=== PATIENT | female | born 1960 | race Caucasian/White ===

== ENCOUNTER → 2019-02-11 15:19 | Outpatient (CLI) | payer OTHER, SELFPAY ==
--- NOTE | 2019-02-11 | DI.MG.S_ITS ---
BILATERAL DIGITAL SCREENING MAMMOGRAM 3D/2D WITH CAD: 02/11/2019 CLINICAL: Routine screening. Family history of breast cancer. Comparison is made to exams dated: 12/12/2016 mammogram, 09/16/2015 mammogram, 07/12/2014 mammogram, and 08/25/2012 mammogram - [facility]. There are scattered fibroglandular elements in both breasts. Current study was also evaluated with a Computer Aided Detection (CAD) system. No significant masses, calcifications, or other findings are seen in either breast. There has been no significant interval change. IMPRESSION: NEGATIVE There is no mammographic evidence of malignancy. A 1 year screening mammogram is recommended. This exam was interpreted at Station ID: [id number]. NOTE: For mammograms, a report in lay terms will be sent to the patient. Approximately 15% of breast malignancies will not be visualized mammographically. In the management of a palpable breast mass, a negative mammogram must not discourage biopsy of a clinically suspicious lesion. Electronically Signed By: Sissy livingston/mirna:02/11/2019 16:37:39 letter sent: Normal Exam ACR BI-RADS Category 1: Negative 3341F
== END ==
PROVIDERS: PCP Family Medicine; Visit Provider Family Medicine
DX: Z12.31 Encounter for screening mammogram for malignant neoplasm of breast (principal); Z80.3 Family history of malignant neoplasm of breast
CPT/HCPCS: 77063; 77067

== ENCOUNTER → 2020-04-04 09:06 | Outpatient (CLI) | payer OTHER, SELFPAY ==
[2020-04-04 10:16] LABS: Add Manual Diff / Slide Review NO; Basophils Absolute Auto 100 /uL (0-100); Basophils Percent Auto 1.2 % (0-2); Eosinophils Absolute Auto 200 /uL (0-450); Eosinophils Percent Auto 3.8 % (2-4); Hemoglobin 12.1 g/dL (12.0-16.0); Lymphocytes Absolute Auto 1400 /uL (1100-4500); Lymphocytes Percent Auto 31.7 % (25-40); Mean Corpuscular HGB Conc 32.7 % (30-36); Mean Corpuscular Volume 88.9 fL (80-100); Monocytes Absolute Auto 300 /uL (0-900); Monocytes Percent Auto 7.4 % (3-14); Neutrophils Absolute Auto 2500 /uL (1500-7000); Neutrophils Percent Auto 55.9 % (50-75); Platelet Count 231 X10^3/uL (150-400); Red Blood Cell Count 4.16 X10^6/uL (4.0-5.2); White Blood Cell Count 4.4 X10^3/uL (4.5-11.0)
[2020-04-04 10:40] LABS: Alanine Aminotransferase 17 IU/L (<35); Albumin 4.1 g/dL (3.5-5.0); Albumin Globulin Ratio 1.4 (1.0-2.8); Alkaline Phosphatase 65 U/L (38-126); Aspartate Aminotransferase 25 IU/L (14-36); BUN Creatinine Ratio 22.1 (6-22); Bilirubin Total 0.4 mg/dL (0.2-1.3); Blood Urea Nitrogen 19 mg/dL (7-17); Calcium 9.5 mg/dL (8.4-10.2); Carbon Dioxide 32 mmol/L (22-32); Chloride 104 mmol/L (98-107); Cholesterol 150 mg/dL (140-199); Estimated Glomerular Filt Rate > 60.0 mL/min (>60); Globulin 2.9 g/dL (1.7-4.1); Glucose 105 mg/dL (70-100); HDL Cholesterol 51 mg/dL (40-60); HEMOLYSIS < 15 (0-50); LDL Cholesterol Calculated 81 mg/dL (<100); Potassium 4.5 mmol/L (3.4-5.1); Sodium 139 mmol/L (137-145); Triglycerides 91 mg/dL (35-150)
[2020-04-04 11:08] LABS: TSH w/ Reflex to FT4 2.56 uIU/mL (0.47-4.68)
== END ==
PROVIDERS: PCP Family Medicine; Referring Provider Family Medicine; Visit Provider Family Medicine
DX: E78.5 Hyperlipidemia, unspecified (principal); F32.9 Major depressive disorder, single episode, unspecified
CPT/HCPCS: 36415; 80053; 80061; 84443; 85025

== ENCOUNTER → 2020-05-02 15:59 | Outpatient (CLI) | payer OTHER, SELFPAY ==
--- NOTE | 2020-05-02 | DI.MG.S_ITS ---
BILATERAL DIGITAL SCREENING MAMMOGRAM 3D/2D WITH CAD: 05/02/2020 CLINICAL: Routine screening. Family history of breast cancer. Comparison is made to exams dated: 02/11/2019 mammogram, 12/12/2016 mammogram, and 09/16/2015 mammogram - [facility]. There are scattered fibroglandular elements in both breasts. Current study was also evaluated with a Computer Aided Detection (CAD) system. There is irregular architectural distortion in the left breast at 1 o'clock middle depth. This is more prominent. No other significant masses, calcifications, or other findings are seen in either breast. IMPRESSION: INCOMPLETE: NEEDS ADDITIONAL IMAGING EVALUATION The irregular architectural distortion in the left breast is indeterminate. Additional views with possible ultrasound are recommended. This exam was interpreted at Station ID: [id number]. NOTE: For mammograms, a report in lay terms will be sent to the patient. Approximately 15% of breast malignancies will not be visualized mammographically. In the management of a palpable breast mass, a negative mammogram must not discourage biopsy of a clinically suspicious lesion. Electronically Signed By: Eder fisher/mirna:05/02/2020 16:33:14 letter sent: Additional Imaging Needed ACR BI-RADS Category 0: Incomplete 3340F
== END ==
PROVIDERS: PCP Family Medicine; Referring Provider Family Medicine; Visit Provider Family Medicine
DX: Z12.31 Encounter for screening mammogram for malignant neoplasm of breast (principal); Z80.3 Family history of malignant neoplasm of breast
CPT/HCPCS: 77063; 77067

== ENCOUNTER → 2020-05-09 13:24 | Outpatient (CLI) | payer OTHER, SELFPAY ==
--- NOTE | 2020-05-09 | DI.MG.S_ITS ---
UNILATERAL LEFT DIGITAL DIAGNOSTIC MAMMOGRAM 3D/2D WITH ADDITIONAL VIEWS: 05/09/2020 CLINICAL: Additional evaluation requested from prior study. Comparison is made to exams dated: 05/02/2020 mammogram, 02/11/2019 mammogram, and 12/12/2016 mammogram - [facility]. There are scattered fibroglandular elements in left breast. The previously described irregular architectural distortion in the left breast at 1 o'clock middle depth is no longer seen and is not confirmed in additional views and is consistent with summation artifact. No other significant masses or calcifications are seen in the breast. IMPRESSION: INCOMPLETE: NEEDS ADDITIONAL IMAGING EVALUATION The previously described architectural distortion disperses with additional views and is consistent with summation artifact. However, an ultrasound to confirm is recommended, and is scheduled to immediately follow this examination. This exam was interpreted at Station ID: [id number]. NOTE: For mammograms, a report in lay terms will be sent to the patient. Approximately 15% of breast malignancies will not be visualized mammographically. In the management of a palpable breast mass, a negative mammogram must not discourage biopsy of a clinically suspicious lesion. Electronically Signed By: Earl Owens M.D. aty/:05/09/2020 14:14:20 ACR BI-RADS Category 0: Incomplete 3340F
--- NOTE | 2020-05-09 13:25 | DI.US.S_ITS ---
LIMITED ULTRASOUND OF LEFT BREAST AND AXILLA: 05/09/2020 CLINICAL: Patient returns today to evaluate an asymmetry in left breast. Comparison is made to exams dated: 05/09/2020 mammogram, 05/02/2020 mammogram, and 02/11/2019 mammogram - [facility]. Real-time ultrasound of the left breast 12-3 o'clock, and axilla regions was performed. Blackwell scale images of the real-time examination were reviewed. No significant abnormalities were seen sonographically in the left breast. IMPRESSION: NEGATIVE There is no sonographic evidence of malignancy. There is no abnormality seen in the left breast to correspond with the now resolved mammography finding. A 1 year screening mammogram is recommended. Findings and recommendations were conveyed to the patient during today's evaluation. This exam was interpreted at Station ID: [id number]. Electronically Signed By: Earl Owens M.D. aty/:05/09/2020 15:07:35 letter sent: Normal Exam Ultrasound BI-RADS: 1 Negative
== END ==
PROVIDERS: PCP Family Medicine; Referring Provider Family Medicine; Visit Provider Family Medicine
DX: R92.8 Other abnormal and inconclusive findings on diagnostic imaging of breast (principal)
CPT/HCPCS: 76642; 77065; G0279

== ENCOUNTER → 2020-05-27 09:14 | Outpatient (CLI) | payer OTHER, SELFPAY ==
[2020-05-27 11:13] LABS: COVID19 -Nasal RAPID Negative (Negative)
== END ==
PROVIDERS: PCP Family Medicine; Visit Provider Surgery
DX: Z01.812 Encounter for preprocedural laboratory examination (principal); Z20.822 Contact with and (suspected) exposure to COVID-19
CPT/HCPCS: 87635; C9803

== ENCOUNTER 2020-05-30 07:24 | Day surgery (SDC) | payer OTHER, SELFPAY ==
[2020-05-30] VITALS (7 sets, daily range): BP systolic 90–107; BP diastolic 52–61; PULSE 77–101; RESP 10–16; TEMP 36.3–36.4; O2SAT 92–99; BMI 24.5
[2020-05-30] MEDS: LACTATED RINGERS 1,000 ML 200 ML IV (07:54)
--- NOTE | 2020-05-30 08:31 | PM.HP.1 ---
History of Present Illness History of Present Illness Date Patient Seen: 05/30/20 Time Patient Seen: 08:31 Chief complaint: SCREENING COLONSCOPY Narrative: The patient presents for colorectal sreening. She had a previous colonoscopy 10 years ago which was normal. No personal or family history of colon cancer. On further history denies any recent gastrointestinal symptoms. No nausea, vomiting, abdominal pain, loss of appetite, unexplained weight loss, change in bowel habits, diarrhea, constipation, melena, hematochezia, or bright red blood per rectum. Patient History Medical History Anxiety Depression Hyperlipidemia Insomnia Surgical History Status post appendectomy Status post hysterectomy with oophorectomy Family & Social History Family History Father CAD (coronary artery disease) Grandfather No problems noted. Grandfather No problems noted. Social History: household members spouse Tobacco & Substance use: Smoking Status Never smoker alcohol intake never Substance Use Type does not use Meds Home Medications and Allergies Home Medications Medication Instructions Recorded Confirmed Type atorvastatin 20 mg tablet 20 mg PO DAILY #90 tab 06/02/19 05/30/20 Rx amitriptyline 50 mg tablet 200 mg PO DAILY #360 tab 11/23/19 05/30/20 Rx fluoxetine 20 mg capsule 20 mg PO DAILY #90 cap 03/29/20 05/30/20 Rx temazepam 15 mg capsule 15 mg PO BEDTIME #30 cap 03/29/20 05/30/20 Rx temazepam 30 mg capsule See Rx Instructions .ROUTE 04/04/20 05/30/20 Rx .COMPLEX #60 cap cyclobenzaprine 10 mg tablet 10 mg PO TIDP PRN #270 tab 05/26/20 05/30/20 Rx Allergies Allergy/AdvReac Type Severity Reaction Status Date / Time codeine [CODEINE] Allergy Mild GI UPSET Verified 03/29/20 10:53 hydrocodone [HYDROCODONE] Allergy Mild ABDOMINAL Verified 03/29/20 10:53 PAIN meperidine [MEPERIDINE] Allergy Mild NAUSEA, Verified 03/29/20 10:53 VOMITING, ABD PAIN morphine [MORPHINE] Allergy Mild RASH Verified 03/29/20 10:53 propoxyphene [PROPOXYPHENE] Allergy Mild HYPOTENSION Verified 03/29/20 10:53 NSAIDS (Non-Steroidal Allergy Unknown GI PAIN Verified 03/29/20 10:53 Anti-Inflamma [NSAIDS (NON-STEROIDAL ANTI-INFLAMMA] Review of Systems Review of Systems Narrative: A 10 point review of systems is negative except as noted in the HPI Exam Vital Signs (past 8 hours): - 05/30/20 07:44 Temperature 97.4 F L Pulse Rate 77 Respiratory Rate 16 Blood Pressure 107/59 L Pulse Oximetry 99 Oxygen Delivery Method Room Air Narrative Exam Narrative: General-no acute distress, well nourished adult female HEENT-moist mucous membranes, no scleral icterus Neck-supple, no lymphadenopathy Chest- non labored respirations, clear to auscultation bilaterally Cardiac-regular rate no peripheral edema Abdomen-soft, nontender, non distended Extremities-warm, well perfused Neurological-alert and oriented, no focal deficits Assessment & Plan Assessment and plan (1) Screening for colon cancer: Status: Acute Assessment & Plan narrative: The patient requires colorectal screening and colonoscopy is recommended. Technical details were discussed. Risks, benefits, alternatives explained. Risks including but not limited to myocardial infarction, aspiration, bleeding, pain, missed lesion, incomplete examination, need for further radiographic studies, colonic perforation, and need for major abdominal surgery were discussed. All questions were answered to their satisfaction, and they are in agreement with this plan.
[2020-05-30] MEDS: ONDANSETRON 4 MG/2 ML INJ IV (08:36)
[2020-05-30] MEDS: MIDAZOLAM 5 MG/5 ML VIAL IV (08:37)
[2020-05-30] MEDS: fentaNYL 250 MCG/5 ML INJ IV (08:37)
--- NOTE | 2020-05-30 08:59 | PM.OP.ENDO ---
Operative Date/Time/Diagnoses Date of procedure: 05/30/20 Time of procedure: 08:59 Pre-op diagnosis: screening colonoscopy Post-op diagnosis: other (tortous colon) Procedure & Clinicians Study performed: incomplete colonoscopy Same procedure as scheduled: Yes Indications: 59-year-old woman prior colonoscopy 10 years ago presents for routine screening Surgeon: Cayden Reyes Procedure Notes Procedure in detail: Medications: Conscious sedation using 4mg IV midazolam and 100mcg IV of fentanyl The history and physical was performed/updated and the patient is ASA class is . The procedure was discussed in detail with the patient. Potential risks complications including infection, bleeding, missed diagnosis, perforation, need for surgery, and were explained. Their questions were answered and informed consent was obtained. Patient was brought to the procedure room and placed standard monitoring equipment. The patient's vital signs were monitored continuously throughout the entire procedure. Prior to starting time-out was performed. The patient was placed in the left lateral recumbent position. Procedural sedation was administered. Examination began with a thorough inspection of the perianal area there was no evidence of fissures, fistulae, external hemorrhoids or cutaneous malignancy. The colonoscopy scope was then placed into the anal canal and was advanced forward. The rectum was traversed however at the level of the sigmoid colon at approximately 25 cm from anal verge the colon was extremely tortuous and I was unable to advance beyond this point. Multiple attempts were made to improve the situation including stiffening of the scope, copious irrigation, repositioning the patient, but despite these measures I was unable to adequately visualize the lumen and safely advance forward. After 20 minutes of sedation the procedure was aborted. Sedation minutes: 20 Specimen(s): none sent Complications: none Impression: Incomplete colonoscopy Post-procedure Recommendations: Other recommendation (Barium enema) Disposition: same day surgery
== END 2020-05-30 09:40 | disposition home or self-care (01) ==
PROVIDERS: PCP Family Medicine; Referring Provider Family Medicine; Visit Provider Surgery
PROC: 0DJD8ZZ Inspection of Lower Intestinal Tract, Via Natural or Artificial Opening Endoscopic (ICD-10-PCS; CPT 45378; principal; 2020-05-30 08:30)
DX: Z12.11 Encounter for screening for malignant neoplasm of colon (principal); F41.9 Anxiety disorder, unspecified; F32.9 Major depressive disorder, single episode, unspecified; E78.5 Hyperlipidemia, unspecified; K56.2 Volvulus; Z53.09 Procedure and treatment not carried out because of other contraindication
CPT/HCPCS: 45378; 99152; J2250; J2405; J3010

== ENCOUNTER → 2020-06-20 07:36 | Outpatient (CLI) | payer OTHER, SELFPAY ==
--- NOTE | 2020-06-20 07:37 | DI.RAD.S_ITS ---
PROCEDURE: FL BARIUM ENEMA W AIR CONTRAST INDICATIONS: incomplete colonoscopy COMPARISON: None. FINDINGS: KUB: Pre-procedural animal geneticist film demonstrates a normal bowel gas pattern. No suspicious abdominal calcifications. Visualized solid organ contours are normal in size. No suspicious bony lesions. Colon: There is adequate air-contrast opacification from the rectum to the cecum. No strictures, ulcers, polyps, or masses are seen. Haustral folds are normal in thickness throughout. No diverticula. The study was mildly compromised by the patient's inability to tolerate full aliquots of instilled gas, and also barium leakage, and also expulsion of the barium enema balloon tip. IMPRESSION: Mildly limited quality of valuation as noted above, no lesion seen. The colon was evaluated to the cecal tip. No lesion seen. Dictated by: Mamadou Higgins M.D. on 06/20/2020 at 9:42 Approved by: Mamadou Higgins M.D. on 06/20/2020 at 9:45
== END ==
PROVIDERS: PCP Family Medicine; Referring Provider Family Medicine; Visit Provider Surgery
DX: Z12.11 Encounter for screening for malignant neoplasm of colon (principal)
CPT/HCPCS: 74280

== ENCOUNTER → 2021-06-30 12:44 | Outpatient (CLI) | payer OTHER, SELFPAY ==
--- NOTE | 2021-06-30 | DI.MG.S_ITS ---
BILATERAL DIGITAL SCREENING MAMMOGRAM 3D/2D WITH CAD: 06/30/2021 CLINICAL: Routine screening. Family history of breast cancer. Comparison is made to exams dated: 05/09/2020 mammogram, 05/02/2020 mammogram, 02/11/2019 mammogram, and 12/12/2016 mammogram - [facility]. The tissue of both breasts is predominantly fatty. Current study was also evaluated with a Computer Aided Detection (CAD) system. No significant masses, calcifications, or other findings are seen in either breast. There has been no significant interval change. IMPRESSION: NEGATIVE There is no mammographic evidence of malignancy. A 1 year screening mammogram is recommended. This exam was interpreted at Station ID: [id number]. NOTE: For mammograms, a report in lay terms will be sent to the patient. Approximately 15% of breast malignancies will not be visualized mammographically. In the management of a palpable breast mass, a negative mammogram must not discourage biopsy of a clinically suspicious lesion. Electronically Signed By: Sissy livingston/mirna:06/30/2021 15:39:19 letter sent: Normal Exam ACR BI-RADS Category 1: Negative 3341F
== END ==
PROVIDERS: PCP Family Medicine; Referring Provider Family Medicine; Visit Provider Family Medicine
DX: Z12.31 Encounter for screening mammogram for malignant neoplasm of breast (principal); Z80.3 Family history of malignant neoplasm of breast
CPT/HCPCS: 77063; 77067

== ENCOUNTER → 2022-02-07 08:27 | Outpatient (CLI) | payer OTHER, SELFPAY ==
[2022-02-07 10:57] LABS: Add Manual Diff / Slide Review NO; Basophils Absolute Auto 100 /uL (0-100); Eosinophils Absolute Auto 100 /uL (0-450); Eosinophils Percent Auto 2.3 % (2-4); Hemoglobin 11.9 g/dL (12.0-16.0); Lymphocytes Absolute Auto 1400 /uL (1100-4500); Lymphocytes Percent Auto 27.2 % (25-40); Mean Corpuscular HGB Conc 33.2 % (30-36); Mean Corpuscular Hemoglobin 29.6 PG (26-34); Mean Corpuscular Volume 89.2 fL (80-100); Monocytes Absolute Auto 500 /uL (0-900); Monocytes Percent Auto 9.3 % (3-14); Neutrophils Absolute Auto 3100 /uL (1500-7000); Neutrophils Percent Auto 60.2 % (50-75); Platelet Count 270 X10^3/uL (150-400); Red Blood Cell Count 4.04 X10^6/uL (4.0-5.2); Red Cell Distribution Width 13.3 % (11.6-14.8); White Blood Cell Count 5.1 X10^3/uL (4.5-11.0)
[2022-02-07 11:09] LABS: Hemoglobin A1C% w Est Avg Glu 5.7 % (4.0-6.0)
[2022-02-07 11:19] LABS: Alanine Aminotransferase 20 IU/L (<35); Albumin 4.2 g/dL (3.5-5.0); Albumin Globulin Ratio 1.2 (1.0-2.8); Alkaline Phosphatase 67 U/L (38-126); Aspartate Aminotransferase 26 IU/L (14-36); Bilirubin Total 0.4 mg/dL (0.2-1.3); Blood Urea Nitrogen 31 mg/dL (7-17); Calcium 9.1 mg/dL (8.4-10.2); Carbon Dioxide 29 mmol/L (22-32); Chloride 104 mmol/L (98-107); Estimated Glomerular Filt Rate > 60 mL/min (>60); Globulin 3.4 g/dL (1.7-4.1); Glucose 87 mg/dL (70-100); HEMOLYSIS < 15 (0-50); Potassium 4.6 mmol/L (3.4-5.1); Sodium 140 mmol/L (137-145); Total Protein 7.6 g/dL (6.3-8.2)
[2022-02-07 11:54] LABS: TSH w/ Reflex to FT4 2.53 uIU/mL (0.47-4.68)
== END ==
PROVIDERS: PCP Family Medicine; Referring Provider Family Medicine; Visit Provider Family Medicine
DX: I95.9 Hypotension, unspecified (principal)
CPT/HCPCS: 36415; 80053; 83036; 84443; 85025

== ENCOUNTER → 2022-07-02 15:53 | Outpatient (CLI) | payer OTHER, SELFPAY ==
--- NOTE | 2022-07-02 15:56 | DI.MG.S_ITS ---
BILATERAL DIGITAL SCREENING MAMMOGRAM 3D/2D WITH CAD: 07/02/2022 CLINICAL: Routine screening. Family history of breast cancer. Comparison is made to exams dated: 06/30/2021 mammogram, 05/02/2020 mammogram, and 02/11/2019 mammogram - . There are scattered areas of fibroglandular density in both breasts (category b / 25%-50% glandular tissue). Current study was also evaluated with a Computer Aided Detection (CAD) system. No significant masses, calcifications, or other findings are seen in either breast. There has been no significant interval change. IMPRESSION: NEGATIVE There is no mammographic evidence of malignancy. A 1 year screening mammogram is recommended. Based on the Tyrer Cuzick model (a risk assessment model) the patient's lifetime risk is 7.1% and her 10 year risk is 2.8%. According to the ACR, ACS, and NCCN guidelines, an annual breast MRI exam along with mammogram is recommended if the patient's lifetime risk is 20% or greater. This exam was interpreted at Station ID: [id number]. NOTE: For mammograms, a report in lay terms will be sent to the patient. Approximately 15% of breast malignancies will not be visualized mammographically. In the management of a palpable breast mass, a negative mammogram must not discourage biopsy of a clinically suspicious lesion. Electronically Signed By: Earl mckeon/mirna:07/03/2022 07:33:42 letter sent: Normal Exam ACR BI-RADS Category 1: Negative 3341F
== END ==
PROVIDERS: PCP Family Medicine; Referring Provider Family Medicine; Visit Provider Family Medicine
DX: Z12.31 Encounter for screening mammogram for malignant neoplasm of breast (principal); Z80.3 Family history of malignant neoplasm of breast
CPT/HCPCS: 77063; 77067

== ENCOUNTER → 2023-07-24 13:52 | Outpatient (CLI) | payer OTHER, SELFPAY ==
--- NOTE | 2023-07-24 13:53 | DI.MG.S_ITS ---
BILATERAL DIGITAL SCREENING MAMMOGRAM 3D/2D WITH CAD: 07/24/2023 CLINICAL: Routine screening. Family history of breast cancer. Comparison is made to exams dated: 07/02/2022 mammogram, 06/30/2021 mammogram, 05/09/2020 mammogram, 05/02/2020 mammogram, and 02/11/[address] - [facility]. There are scattered areas of fibroglandular density in both breasts (category b / 25%-50% glandular tissue). Current study was also evaluated with a Computer Aided Detection (CAD) system. No significant masses, calcifications, or other findings are seen in either breast. There has been no significant interval change. IMPRESSION: NEGATIVE There is no mammographic evidence of malignancy. A 1 year screening mammogram is recommended. Based on the Tyrer Cuzick model (a risk assessment model) the patient's lifetime risk is 6.9% and her 10 year risk is 2.8%. According to the ACR, ACS, and NCCN guidelines, an annual breast MRI exam along with mammogram is recommended if the patient's lifetime risk is 20% or greater. This exam was interpreted at Station ID: [id number]. NOTE: For mammograms, a report in lay terms will be sent to the patient. Approximately 15% of breast malignancies will not be visualized mammographically. In the management of a palpable breast mass, a negative mammogram must not discourage biopsy of a clinically suspicious lesion. Electronically Signed By: Earl mckeon/mirna:07/24/2023 16:36:09 letter sent: Normal Exam ACR BI-RADS Category 1: Negative 3341F
== END ==
PROVIDERS: PCP Family Medicine; Referring Provider Family Medicine; Visit Provider Family Medicine
DX: Z12.31 Encounter for screening mammogram for malignant neoplasm of breast (principal); Z80.3 Family history of malignant neoplasm of breast; R92.323 Mammographic fibroglandular density, bilateral breasts
CPT/HCPCS: 77063; 77067

== ENCOUNTER 2023-11-22 12:16 | Day surgery (SDC) | payer OTHER, SELFPAY ==
[2023-11-22 12:35] VITALS: BP 117/73; PULSE 78; RESP 16; TEMP 37.4; O2SAT 96
[2023-11-22] MEDS: LACTATED RINGERS 1,000 ML 42 ML IV (12:41)
--- NOTE | 2023-11-22 13:19 | PM.HP.1 ---
History of Present Illness History of Present Illness Date Patient Seen: 11/22/23 Time Patient Seen: 13:19 Chief complaint: Screening Colonoscopy Narrative: 63-year-old woman here for screening colonoscopy. She had an attempted colonoscopy several years ago which was incomplete secondary to a tortuous colon. She had a post procedure barium enema which was normal but very painful as she describes. No family history of colon cancer. [facility] Medical History Insomnia Depression Anxiety Hyperlipidemia Surgical History Status post appendectomy Status post hysterectomy with oophorectomy Family History Father CAD (coronary artery disease) Grandfather No problems noted. Grandfather No problems noted. Social History marital status: household members: spouse Smoking Status: Never smoker alcohol intake: never substance use type: does not use Meds Home Medications and Allergies Home Medications Medication Instructions Recorded Confirmed Type temazepam 15 mg capsule 30 mg (2 x 15 mg) PO BEDTIME #60 01/18/21 11/22/23 Rx caps albuterol sulfate 90 mcg/actuation 2 puff inhalation Q6H PRN 01/29/22 11/22/23 Rx aerosol inhaler shortness of breath or wheezing #6.7 grams sumatriptan succinate 50 mg tablet See Rx Instructions PO .COMPLEX 01/29/22 11/22/23 Rx #10 tabs atorvastatin 20 mg tablet 20 mg PO DAILY #90 tabs 04/01/23 11/22/23 Rx cyclobenzaprine 10 mg tablet 10 mg PO TIDP PRN muscle spasm 04/01/23 11/22/23 Rx #270 tabs duloxetine 30 mg capsule,delayed 30 mg PO DAILY #90 caps 04/01/23 11/22/23 Rx release amitriptyline 100 mg tablet 200 mg (2 x 100 mg) PO BEDTIME 08/20/23 11/22/23 Rx #180 tabs Allergies Allergy/AdvReac Type Severity Reaction Status Date / Time morphine [MORPHINE] Allergy Mild RASH Verified 04/01/23 10:15 codeine [CODEINE] AdvReac Mild GI UPSET Verified 11/22/23 10:28 hydrocodone [HYDROCODONE] AdvReac Mild ABDOMINAL Verified 11/22/23 10:28 PAIN meperidine [MEPERIDINE] AdvReac Mild NAUSEA, Verified 11/22/23 10:28 VOMITING, ABD PAIN propoxyphene [PROPOXYPHENE] AdvReac Mild HYPOTENSION Verified 11/22/23 10:28 NSAIDS (Non-Steroidal AdvReac Unknown GI PAIN Verified 11/22/23 10:28 Anti-Inflamma [NSAIDS (NON-STEROIDAL ANTI-INFLAMMA] Exam Vital Signs (past 8 hours): - 11/22/23 12:35 Temperature 99.3 F Pulse Rate 78 Respiratory Rate 16 Blood Pressure 117/73 Pulse Oximetry 96 Oxygen Delivery Method Room Air Oxygen Delivery Method Room Air Narrative Exam Narrative: General adult woman alert oriented no acute distress Chest nonlabored respiration Extremities warm well perfused Assessment & Plan Assessment & Plan narrative: The patient requires colorectal screening and colonoscopy is recommended. Technical details were discussed. Risks, benefits, alternatives explained. Risks including but not limited to myocardial infarction, aspiration, bleeding, pain, missed lesion, incomplete examination, need for further radiographic studies, intestinal injury, and need for major abdominal surgery were discussed. All questions were answered to their satisfaction, and they are in agreement with this plan. Time-Based Coding :: [TOTAL MINUTES] spent with patient and on the chart (including review of chart, obtaining history, exam, reviewing outside data, placing orders, documenting exam and treatment plan, and counseling patient) on [DATE].
[2023-11-22 13:40] VITALS: BP 105/79; PULSE 78; RESP 14; TEMP 36.4; O2SAT 93
[2023-11-22 13:45] VITALS: BP 97/67; PULSE 81; RESP 13; O2SAT 94
[2023-11-22 13:50] VITALS: BP 108/66; PULSE 79; RESP 14; O2SAT 96
--- NOTE | 2023-11-22 13:50 | P.OP.COLON_ITS ---
Operative Date/Time/Diagnoses Date of procedure: 11/22/23 Time of procedure: 13:50 Pre-op diagnosis: Screening colonoscopy Procedure & Clinicians Study performed: Sigmoidoscopy Aborted colonoscopy Same procedure as scheduled: Yes Indications: 63-year-old woman here for screening colonoscopy Surgeon: Cayden Reyes Procedure Notes Procedure in detail: The history and physical was performed/updated and the patient is ASA class is 2. The procedure was discussed in detail with the patient. Potential risks complications including infection, bleeding, missed diagnosis, perforation, need for surgery, and were explained. Their questions were answered and inform ed consent was obtained. Patient was brought to the procedure room and placed standard monitoring equipment. The patient's vital signs were monitored continuously throughout the entire procedure. Prior to starting time-out was performed. The patient was placed in the left lateral recumbent position. Procedural sedation was administered by anesthesia. Examination began with a thorough inspection of the perianal area there was no evidence of fissures, fistulae, external hemorrhoids or cutaneous malignancy. The colonoscopy scope was then placed into the anal canal and was advanced forward. We reached the level of the sigmoid colon. Beyond this point I was unable to advance the scope safely secondary to the tortuosity of the colon likely result of adhesive disease given her previous pelvic surgeries. The visualized portion of the rectum and sigmoid colon were normal in appearance. Specimen(s): none sent Impression: Normal sigmoidoscopy Aborted colonoscopy Post-procedure Plan for aftercare: Yearly fecal immunochemical test Disposition: same day surgery
[2023-11-22 13:51] VITALS: BP 104/66; PULSE 77; RESP 14; TEMP 36.1; O2SAT 96
== END 2023-11-22 14:04 | disposition home or self-care (01) ==
PROVIDERS: PCP Family Medicine; Referring Provider Surgery; Visit Provider Surgery
PROC: 0DJD8ZZ Inspection of Lower Intestinal Tract, Via Natural or Artificial Opening Endoscopic (ICD-10-PCS; CPT 45378; principal; 2023-11-22 13:15)
DX: Z12.11 Encounter for screening for malignant neoplasm of colon (principal); Z53.09 Procedure and treatment not carried out because of other contraindication
CPT/HCPCS: 45378; J2704

== ENCOUNTER → 2024-03-24 08:53 | Outpatient (CLI) | payer OTHER, SELFPAY ==
[2024-03-24 10:15] LABS: Add Manual Diff / Slide Review NO; Basophils Absolute Auto 0 /uL (0-100); Eosinophils Absolute Auto 100 /uL (0-450); Eosinophils Percent Auto 2.7 % (2-4); Hematocrit 38.3 % (36-46); Hemoglobin 12.6 g/dL (12.0-16.0); Lymphocytes Absolute Auto 1300 /uL (1100-4500); Lymphocytes Percent Auto 28.5 % (25-40); Mean Corpuscular Hemoglobin 29.7 PG (26-34); Monocytes Absolute Auto 300 /uL (0-900); Monocytes Percent Auto 7.8 % (3-14); Neutrophils Absolute Auto 2600 /uL (1500-7000); Platelet Count 255 X10^3/uL (150-400); Red Blood Cell Count 4.26 X10^6/uL (4.0-5.2); Red Cell Distribution Width 13.7 % (11.6-14.8); White Blood Cell Count 4.4 X10^3/uL (4.5-11.0)
[2024-03-24 10:36] LABS: Alanine Aminotransferase 16 IU/L (<35); Albumin 4.2 g/dL (3.5-5.0); Albumin Globulin Ratio 1.3 (1.0-2.8); Alkaline Phosphatase 65 U/L (38-126); Aspartate Aminotransferase 27 IU/L (14-36); Bilirubin Total 0.4 mg/dL (0.2-1.3); Blood Urea Nitrogen 34 mg/dL (7-17); Calcium 9.5 mg/dL (8.4-10.2); Carbon Dioxide 27 mmol/L (22-32); Chloride 103 mmol/L (98-107); Cholesterol 176 mg/dL (140-199); Estimated Glomerular Filt Rate > 60 mL/min (>60); Globulin 3.3 g/dL (1.7-4.1); Glucose 91 mg/dL (80-110); HDL Cholesterol 67 mg/dL (40-60); HEMOLYSIS < 15 (0-50); LDL Cholesterol Calculated 95 mg/dL (<100); Potassium 4.2 mmol/L (3.4-5.1); Sodium 135 mmol/L (137-145); Total Protein 7.5 g/dL (6.3-8.2); Triglycerides 68 mg/dL (35-150)
[2024-03-24 11:08] LABS: TSH w/ Reflex to FT4 2.49 uIU/mL (0.47-4.68)
== END ==
PROVIDERS: PCP Family Medicine; Referring Provider Family Medicine; Visit Provider Family Medicine
DX: E78.2 Mixed hyperlipidemia (principal); I95.0 Idiopathic hypotension; F33.0 Major depressive disorder, recurrent, mild
CPT/HCPCS: 36415; 80053; 80061; 84443; 85025

== ENCOUNTER → 2024-08-24 14:24 | Outpatient (CLI) | payer OTHER, SELFPAY ==
--- NOTE | 2024-08-24 14:26 | DI.MG.S_ITS ---
MM screening mammo BI: 08/24/2024. BI-RADS: 1 CLINICAL: 64-year old female for bilateral screening mammogram. Tyrer-Cuzick lifetime risk of 3.6%. No personal or first-degree family history of breast cancer. Current reported family history of breast cancer: paternal grandmother and paternal aunt. PRIOR EXAMS 07/24/2023, 07/02/2022, 06/30/2021, 05/09/2020, 05/02/2020, 02/11/2019, 12/12/2016, 09/16/2015. MAMMOGRAPHY TECHNIQUE: 2D and 3D (tomosynthesis) digital mammographic views obtained, with additional images as needed for full coverage. Current study was also evaluated with a Computer Aided Detection (CAD) system. DENSITY B. There are scattered areas of fibroglandular density. MAMMOGRAPHY FINDINGS Bilateral: No suspicious mass, asymmetry, microcalcification, or other abnormality seen. No significant change from comparison. IMPRESSION: * No evidence of malignancy. RECOMMENDATIONS Bilateral * Annual screening mammography. OVERALL ASSESSMENT CATEGORY BI-RADS-1: Negative. The [employer] recommends annual screening mammography beginning at age 40 for women with average risk of breast cancer. ELECTRONICALLY SIGNED: Isadora Neff M.D. on 08/24/2024 at 05:41:55 PM PT Interpreting Station ID: [id number]
== END ==
LOC: MAMMO 14:25
PROVIDERS: PCP Family Medicine; Referring Provider Family Medicine; Visit Provider Family Medicine
DX: Z12.31 Encounter for screening mammogram for malignant neoplasm of breast (principal); Z80.3 Family history of malignant neoplasm of breast
CPT/HCPCS: 77063; 77067